=== PATIENT | male | born 1950 | race Caucasian/White ===

== ENCOUNTER → 2016-12-26 | Outpatient (REF) | payer MEDICARE, BC, OTHER | LOC: M SMT 17:27 | PROVIDERS: ATTEND Urology | DX: R97.20 Elevated prostate specific antigen [PSA] (principal); Z79.899 Other long term (current) drug therapy | CPT/HCPCS: 81001; 87086; G0463 ==

== ENCOUNTER → 2017-02-07 | Outpatient (CLI) | payer MEDICARE, BC, OTHER ==
--- NOTE | 2017-02-07 13:12 | REP ---
TRANSRECTAL PROSTATE ULTRASOUND WITH ULTRASOUND GUIDANCE FOR PROSTATE BIOPSY: Real-time sonographic of prostate performed utilizing transrectal probe. Size of the gland is 4.6 x 3.4 x 5.0 cm for a total volume of 40.8 mL. Echotexture is diffusely heterogeneous. Cystic area is seen on the left 5 mm in diameter. Seminal vesicles appear symmetrical. Ultrasound guidance was provided for Dr. Gaitan who performed ultrasound guided biopsy of the prostate. Signed by Noe Rahman MD 02/07/2017 05:49 P
== END ==
LOC: M SMT PRO 10:30
PROVIDERS: ATTEND Urology
DX: R97.20 Elevated prostate specific antigen [PSA] (principal)
CPT/HCPCS: 55700; 76872; 76942; G0416

== ENCOUNTER → 2017-02-20 | Outpatient (CLI) | payer MEDICARE, BC, OTHER ==
[~2017-02-20] MED LIST: ISOVUE-370 76% 100ML VIAL (Q9967) As Ordered ONE
--- NOTE | 2017-02-20 09:44 | REP ---
CT abdomen pelvis without and with IV contrast. After IV contrast imaging is performed during the late arterial / portal venous phase of enhancement and again later during the delayed equilibrium phase of enhancement. There are no comparisons. The S1 vertebral body is mildly hyperdense. This is nonspecific, however, given the clinical history of prostate carcinoma the possibility of a blastic lesion cannot be entirely discounted. There is a bridging osteophyte and cortical eburnation at the inferior aspect of the right sacroiliac articulation compatible with osteoarthritis. No other lytic, blastic or destructive skeletal changes are identified. The visualized lung samaniego are unremarkable. The hepatic parenchyma, gallbladder, pancreas and spleen are homogeneous and unremarkable on all phases of the study. The adrenals, kidneys and abdominal aorta are unremarkable. There is no retroperitoneal adenopathy. There is no mesenteric adenopathy. The bowel and mesentery are unremarkable except for descending colon and sigmoid colon diverticulosis without diverticulitis. Pelvis: There is no adenopathy or ascites. The bladder is unremarkable. The prostate is mildly enlarged and effaces the bladder base. Impression: Questionable blastic lesion in the S1 vertebral body. No other lytic, blastic or destructive skeletal changes. There is no retroperitoneal or mesenteric adenopathy. No ascites. The prostate is mildly enlarged and effaces the bladder base. There is diverticulosis without diverticulitis. Signed by Noe Cherry MD 02/20/2017 09:36 A
--- NOTE | 2017-02-20 13:25 | REP ---
Whole body radionuclide bone scan: Whole-body scanning is performed. Additionally oblique views of the ribs and pelvis are performed and lateral views of the calvarium are performed. There is a bilaterally symmetric pattern of uptake in the shoulders, compatible with degenerative uptake. There is degenerative uptake in the knees. There are no other foci of increased uptake. Impression: No evidence of skeletal metastatic disease. There is a degenerative pattern of uptake in the shoulders and knees. The study is performed with 22 mCi of technetium 99m labeled MDP. Signed by Noe Cherry MD 02/20/2017 01:17 P
== END ==
LOC: M RAD 07:47
PROVIDERS: ATTEND Urology
DX: C61 Malignant neoplasm of prostate (principal); N40.0 Benign prostatic hyperplasia without lower urinary tract symptoms; K57.30 Diverticulosis of large intestine without perforation or abscess without bleeding
CPT/HCPCS: 74178; 78306; A9503; Q9967

== ENCOUNTER → 2017-03-24 | Outpatient (CLI) | payer MEDICARE, BC, OTHER ==
[2017-03-24 18:08] LABS: MEAN CORPUSCULAR HEMOGLOBIN 30.5 pg (27.0-33.0); MEAN CORPUSCULAR HGB CONC 33.1 g/dl (32.0-36.5); MEAN CORPUSCULAR VOLUME 92.3 fl (80.0-96.0); PLATELET COUNT, AUTOMATED 290 10^3/uL (150-450); RED CELL DISTRIBUTION WIDTH 13.2 % (11.5-14.5); WHITE BLOOD COUNT 8.1 10^3/uL (4.0-10.0)
[2017-03-24 18:25] LABS: INR 0.9
[2017-03-24 18:33] LABS: ANION GAP 10 MEQ/L (8-16); BLOOD UREA NITROGEN 15 MG/DL (7-18); CALCIUM LEVEL 8.6 MG/DL (8.8-10.2); CARBON DIOXIDE LEVEL 26 MEQ/L (21-32); CHLORIDE LEVEL 104 MEQ/L (98-107); CREATININE FOR GFR 0.94 MG/DL (0.70-1.30); GLOMERULAR FILTRATION RATE > 60.0 (>49); GLUCOSE, FASTING 91 MG/DL (80-110); POTASSIUM SERUM 4.4 MEQ/L (3.5-5.1); SODIUM LEVEL 140 MEQ/L (136-145)
== END ==
LOC: M SMT 14:22
PROVIDERS: ATTEND Urology
DX: Z01.818 Encounter for other preprocedural examination (principal); C61 Malignant neoplasm of prostate; Z79.899 Other long term (current) drug therapy

== ENCOUNTER 2017-04-01 09:47 | Inpatient (IN) | payer MEDICARE, BC, OTHER ==
[~2017-04-01] VITALS: Ht 177.8 cm; Wt 77.1 kg
[2017-04-01] MEDS ORDERED: PROPOFOL 200 MG/20 ML VIAL As Ordered ONE ×2 (11:22→15:00)
[2017-04-01] MEDS ORDERED: ROCURONIUM BROMIDE 50 MG/5 ML VIAL As Ordered ONE ×3 (11:22→15:23)
[2017-04-01] MEDS ORDERED: LIDOCAINE 2% INJ 100 MG/5 ML SDV (FOR ANES.) As Ordered ONE (11:22)
[2017-04-01] MEDS ORDERED: dexameTHASONE 4 MG/ML 1ML VIAL (J1100) As Ordered ONE (11:24)
[2017-04-01] MEDS ORDERED: fentaNYL 250 MCG/5 ML INJECTION (J3010) As Ordered ONE (11:58)
[2017-04-01] MEDS ORDERED: ONDANSETRON 4MG/2ML VIAL (J2405) As Ordered ONE ×2 (11:58→15:49)
[2017-04-01] MEDS ORDERED: METOCLOPRAMIDE INJ 10MG/2ML VIAL (J2765) As Ordered ONE (11:58)
[2017-04-01] MEDS ORDERED: MIDAZOLAM INJ 2 MG/2 ML VIAL (J2250) As Ordered ONE (11:58)
[2017-04-01] MEDS ORDERED: HYDROmorphone HCL 2 MG/ML 1ML VIAL (J1170) As Ordered ONE (14:48)
[2017-04-01] MEDS ORDERED: SUGAMMADEX SODIUM 500 MG/5 ML VIAL (BRIDION) As Ordered ONE (15:38)
[2017-04-01] MEDS ORDERED: KETOROLAC 60 MG/2 ML VIAL (J1885) As Ordered ONE (15:49)
[2017-04-01] MEDS ORDERED: MORPHINE 4 MG/ML 1ML SYRINGE IV PRN (16:30)
[2017-04-01] MEDS ORDERED: LR 1,000 ML IV SCH (16:30)
[2017-04-01] MEDS ORDERED: ONDANSETRON 4MG/2ML VIAL (J2405) IV PRN ×2 (16:30)
[2017-04-01] MEDS ORDERED: fentaNYL 100 MCG/2 ML INJECTION (J3010) IV PRN (16:30)
[2017-04-01] MEDS ORDERED: HYDROmorphone HCL 1 MG/ML SYRINGE (J1170) IV PRN (16:30)
[2017-04-01] MEDS ORDERED: oxyCODONE 5MG TAB PO PRN (16:30)
[2017-04-01 16:50] LABS: MEAN CORPUSCULAR VOLUME 91.2 fl (80.0-96.0); PLATELET COUNT, AUTOMATED 287 10^3/uL (150-450); WHITE BLOOD COUNT 15.9 10^3/uL (4.0-10.0)
[2017-04-01 17:17] LABS: ANION GAP 9 MEQ/L (8-16); BLOOD UREA NITROGEN 14 MG/DL (7-18); CALCIUM LEVEL 8.3 MG/DL (8.8-10.2); CARBON DIOXIDE LEVEL 26 MEQ/L (21-32); CHLORIDE LEVEL 106 MEQ/L (98-107); CREATININE FOR GFR 1.19 MG/DL (0.70-1.30); GLOMERULAR FILTRATION RATE > 60.0 (>49); GLUCOSE, FASTING 146 MG/DL (80-110); POTASSIUM SERUM 4.7 MEQ/L (3.5-5.1); SODIUM LEVEL 141 MEQ/L (136-145)
[2017-04-01 18:00] VITALS: BP 135/82
[2017-04-01] MEDS ORDERED: PANTOPRAZOLE 40MG INJ (PROTONIX) (C9113) IV SCH (18:00)
[2017-04-01 18:30] VITALS: BP 146/78
[2017-04-01] MEDS ORDERED: LevoFLOXacin IV 500 MG in APPROPRIATE DILUENT 1 EA IV SCH (19:00)
[2017-04-01 19:30] VITALS: BP 133/80
[2017-04-01] MEDS: KCL 20MEQ IN D5/0.45NS 1000ML 1,000 ML IV SCH (19:39)
[2017-04-01 20:30] VITALS: BP 132/76
[2017-04-01] MEDS: ACETAMINOPHEN 650MG ER TAB (TYLENOL ARTHRITIS) PO SCH (22:45)
[2017-04-02] MEDS: KETOROLAC 30 MG/ML VIAL (J1885) IV SCH ×2 (00:14→08:42)
[2017-04-02 02:00] VITALS: BP 113/67
[2017-04-02] MEDS: KCL 20MEQ IN D5/0.45NS 1000ML 1,000 ML IV SCH ×2 (03:47→08:30)
[2017-04-02] MEDS: ACETAMINOPHEN 650MG ER TAB (TYLENOL ARTHRITIS) PO SCH ×2 (05:54→13:47)
[2017-04-02 06:00] VITALS: BP 125/66
[2017-04-02 06:58] LABS: MEAN CORPUSCULAR HEMOGLOBIN 30.4 pg (27.0-33.0); MEAN CORPUSCULAR HGB CONC 33.5 g/dl (32.0-36.5); MEAN CORPUSCULAR VOLUME 90.8 fl (80.0-96.0); PLATELET COUNT, AUTOMATED 273 10^3/uL (150-450); RED CELL DISTRIBUTION WIDTH 13.1 % (11.5-14.5); WHITE BLOOD COUNT 14.5 10^3/uL (4.0-10.0)
[2017-04-02 07:03] LABS: ANION GAP 9 MEQ/L (8-16); BLOOD UREA NITROGEN 12 MG/DL (7-18); CARBON DIOXIDE LEVEL 24 MEQ/L (21-32); CHLORIDE LEVEL 105 MEQ/L (98-107); CREATININE FOR GFR 0.99 MG/DL (0.70-1.30); GLOMERULAR FILTRATION RATE > 60.0 (>49); GLUCOSE, FASTING 142 MG/DL (80-110); POTASSIUM SERUM 4.1 MEQ/L (3.5-5.1); SODIUM LEVEL 138 MEQ/L (136-145)
[2017-04-02 10:00] VITALS: BP 121/72
[2017-04-02 14:00] VITALS: BP 117/76
[2017-04-02] MEDS ORDERED: CIPR500T3 PO (14:41)
[2017-04-02] MEDS ORDERED: TYLE650T35 PO (14:41)
--- NOTE | 2017-04-03 10:32 | RO ---
DATE OF PROCEDURE: 04/01/2017 PREOPERATIVE DIAGNOSIS: Prostate cancer. POSTOPERATIVE DIAGNOSIS: Prostate cancer. PROCEDURE: Robotic assisted radical prostatectomy, plus bilateral pelvic lymph node dissection. SURGEON: Denis Gaitan MD HOT BREAD BAKER: Ramandeep Vee NP ANESTHESIA: General. COMPLICATIONS: None. ESTIMATED BLOOD LOSS (EBL): 25 mL. HISTORY OF PRESENT ILLNESS: 66-year-old male patient with a clinical stage [id number] prostate cancer, Kristy 7. The patient has had a history of bilateral inguinal hernias with meshes. He has consented for robotic assisted radical prostatectomy, plus bilateral pelvic lymph node dissection. PROCEDURE DESCRIPTION: In a patient under general anesthesia in supine modified low lithotomy position, after prepping and draping the area of concern, which included the entire genitalia and abdomen, we inserted a 16-Mohawk Park catheter, inflate the balloon to 10 mL and placed it to gravity. We then preceded to do an incision infraumbilically, longitudinally in the midline for about 2 cm in length. Through this incision, we opened the rectus space and placed a balloon Spacemaker to dissect the rectus space. We then placed a 12 mm balloon trocar and inflated the to 40 mL and through this trocar we insufflated extraperitoneal space with CO2 at a maximum pressure of 50 at high flow. We then preceded to put a handheld robotic camera at 0 degrees through this trocar and placed the other trocars in a fan shaped manner. An 8 mm metallic trocar was placed in the midclavicular line in a fan shaped manner on the right side 8 cm away from midline and 8 cm away from this one another 8 mm metallic trocar in a fan shaped manner was placed with a third arm. On the left side, we placed a 12 mm hospital clinic assistant port trocar, VersaStep for the hospital clinic assistant port 6 cm away from the midline and 8 cm away from this one, an 8 mm metallic trocar on the left side in a fan shaped manner for the left arm. We then proceeded to place the patient in steep Trendelenburg position and docked the robot. On the left arm, we used Monopolar scissors. On right arm, we used Bipolar PK and ProGrasp. We preceded to actually dissect the periprostatic fat and then identified the endopelvic fascia. We cut the endopelvic fascia with monopolar scissors from base to apex. We then preceded to actively secure the dorsal vein complex with a CT1 needle and #0 Vicryl times two. We then proceeded to cut with the monopolar scissors the anterior bladder neck and then found Park catheter, deflated the balloon and retract the Park catheter with a third arm anteriorly to expose the posterior bladder neck. We cut the posterior bladder neck and then the posterior detrusor muscle. We then identified the vas deferens, dissected the vas deferens and with the third arm grabbed the vas deferens and pulled it anteriorly to retract and dissect the seminal vesicles on the left and the right. Once the seminal vesicles on the left and right were dissected, we grabbed the seminal vesicles and the vas deferens with the third arm and pulled them anteriorly to actually retract and expose the posterior Denonvilliers fascia. We incised the posterior Denonvilliers fascia and dissected the rectum away from the prostate from base to apex. We then proceeded to control the prostatic pedicles with Hem-o-michael times two on the left side, times two on the right side. We then dissected in an intrafascial approach the neurovascular bundles from base to apex. Once the prostate was attached only to the dorsal vein complex, we cut the doral vein complex with monopolar scissors and cut the urethra. We then placed the prostate into a 10 mm Endo Catch bag. We then preceded to actually do our posterior reconstruction with a #3-0 V-Loc in a running fashion. We then preceded to do urethrovesical anastomosis with a Quill stitch, #2-0 barbed suture absorbable double needle starting at 6-o'clock in the bladder neck outside in and inside out in the urethra running it across 360 degrees and passing a Park catheter, 20-Mohawk, inflating the balloon to 20 mL. We tested anastomosis. It was watertight. I then preceded to do our pelvic lymph node dissection on the left, on the right. The limits of dissection were hypogastric arteries superiorly, inferiorly, the lacunar ligament posteriorly and the pelvic sidewall, medially the bladder and anteriorly the iliac artery. We dissected the hypogastric lymph nodes and the obturator lymph nodes and the external iliac lymph nodes. We secured lymphostasis with Hem-o-michael and bipolar PK on the left and the right. Each specimen was sent as permanent pathology analysis in separate Endo Catch's of 10 mm in diameter. We then preceded to actually took all the instruments out and placed a 15 round drain to bulb suction. We undocked the robot, took the optic out and took all the trocars out afterward. We took all the specimens, left pelvic lymph dissection, right pelvic lymph dissection, prostate, and seminal vesicles in each Endo Catch bag and sent it for permanent pathology analysis. Total EBL was 25 mL. There were no complications during the surgery. We then started closing the incisions by starting the midline incision with a UR-6 and #0 Vicryl running fashion and every single skin incision with #4-0 Monocryl subcuticular stitches. We secured the drain to the skin with #3-0 nylon. We covered every single incision with Mastisol, Steri-Strips, Telfa, and Tegaderm. There were no complications during surgery. PLAN: The patient will pass to recovery and then to the floor. Once he is tolerating a regular diet he will discharged home with a Park catheter, followup at [facility] in about 10 days for voiding trial.
--- NOTE | 2017-04-04 18:14 | DSES ---
DATE OF ADMISSION: 04/01/2017 DATE OF DISCHARGE: 04/02/2017 ADMISSION DIAGNOSIS: Prostate cancer. DISCHARGE DIAGNOSIS: Prostate cancer. SURGERY PERFORMED: Robotic-assisted radical prostatectomy plus bilateral pelvic lymph node dissections. ADMITTING SURGEON: Dr. Denis Gaitan. DISCHARGE SURGEON: Dr. Denis Gaitan. COMPLICATIONS: None. HISTORY OF PRESENT ILLNESS: This is a 66-year-old male patient who has a history of prostate cancer clinical stage CT1c Nx Mx, Kristy seven 4+3. The patient has consented for a robotic assisted radical prostatectomy plus bilateral pelvic lymph node dissection. For this reason, the surgery was performed on 04/01/2017, and after this procedure, the patient was admitted to the hospital as inpatient status. HOSPITALIZATION COURSE: The patient did very well. By postoperative day one, he was tolerating a regular diet, ambulating very well. Pain was controlled with oral pain medications. Park catheter was draining clear urine. The Rob-Pitt (RALEIGH) output was draining 35 mL on the last shift. He requested to go home, and we agreed upon this. We will discontinue the RALEIGH drain today. He will go home with a Park catheter to gravity. He will have antibiotics ciprofloxacin 500 mg one tablet by mouth twice a day for 10 days, and Tylenol 650 mg one tablet by mouth every eight hours as needed for pain. He can have a regular diet. No heavy weightlifting above 20 pounds. He can shower in three days. He will followup in -10 at [facility] for a voiding trial. There were no complications of the surgery or hospitalization. Pathology report has not come back yet.
== END 2017-04-02 15:42 | disposition home or self-care (01) | DRG 708 ==
LOC: M OR 09:47 → M MSPAV 18:31
PROVIDERS: ADMIT Urology; ATTEND Urology
PROC: 07BC4ZX Excision of Pelvis Lymphatic, Percutaneous Endoscopic Approach, Diagnostic (ICD-10-PCS; 2017-04-01)
PROC: 0VB34ZZ Excision of Bilateral Seminal Vesicles, Percutaneous Endoscopic Approach (ICD-10-PCS; 2017-04-01)
PROC: 8E0W4CZ Robotic Assisted Procedure of Trunk Region, Percutaneous Endoscopic Approach (ICD-10-PCS; 2017-04-01)
PROC: 0VT04ZZ Resection of Prostate, Percutaneous Endoscopic Approach (ICD-10-PCS; principal; 2017-04-01 11:45)
DX: C61 Malignant neoplasm of prostate (principal)

== ENCOUNTER → 2017-04-23 | Outpatient (REF) | payer MEDICARE, BC, OTHER | LOC: M LAB REF 15:26 | DX: L08.9 Local infection of the skin and subcutaneous tissue, unspecified (principal) | CPT/HCPCS: 87186 ==

== ENCOUNTER → 2017-04-23 | Outpatient (REF) | payer MEDICARE, BC, OTHER | LOC: M SMT 17:34 | DX: C61 Malignant neoplasm of prostate (principal); Z79.899 Other long term (current) drug therapy | CPT/HCPCS: 87086 ==

== ENCOUNTER → 2017-05-12 | Outpatient (CLI) | payer MEDICARE, BC, OTHER ==
[2017-05-12 20:18] LABS: PROSTATIC SPECIFIC AG MONITOR 0.03 NG/ML (< 4.0)
== END ==
LOC: M SMT 12:54
DX: C61 Malignant neoplasm of prostate (principal)
CPT/HCPCS: 84153

== ENCOUNTER → 2017-07-29 | Outpatient (REF) | payer MEDICARE, OTHER ==
[2017-07-29 13:11] LABS: APPEARANCE, URINE HAZY (CLEAR); BACTERIA, URINE AUTO 1+ (NEGATIVE); BILIRUBIN, URINE AUTO NEGATIVE (NEGATIVE); BLOOD, URINE BLOOD 3+ (NEGATIVE); COLOR, URINE YELLOW (YELLOW); GLUCOSE, URINE (UA) AUTO NEGATIVE (NEGATIVE); KETONE, URINE AUTO NEGATIVE (NEGATIVE); LEUKOCYTE ESTERASE, URINE AUTO 3+ (NEGATIVE); MUCUS, URINE SMALL (NEGATIVE); NITRITE, URINE AUTO NEGATIVE (NEGATIVE); PROTEIN, URINE AUTO 1+ mg/dL (NEGATIVE); RBC, URINE AUTO TNTC /HPF (0-3); SPECIFIC GRAVITY URINE AUTO 1.009 (1.002-1.035); SQUAMOUS EPITHELIAL CELL UR AU 0 /HPF (0-6); UROBILINOGEN, URINE AUTO 0.2 mg/dL (0.0-2.0); WBC, URINE AUTO 76 /HPF (0-3)
== END ==
LOC: M SMT 12:52
DX: R35.0 Frequency of micturition (principal)
CPT/HCPCS: 81001

== ENCOUNTER → 2017-08-07 | Outpatient (CLI) | payer MEDICARE, OTHER ==
[2017-08-07 18:33] LABS: PROSTATIC SPECIFIC AG MONITOR 0.03 NG/ML (< 4.0)
== END ==
LOC: M SMT 11:16
DX: Z85.46 Personal history of malignant neoplasm of prostate (principal)
CPT/HCPCS: 84153

== ENCOUNTER → 2017-08-12 | Outpatient (REF) | payer MEDICARE, OTHER ==
[2017-08-12 19:02] LABS: APPEARANCE, URINE CLEAR (CLEAR); BACTERIA, URINE AUTO NEGATIVE (NEGATIVE); BILIRUBIN, URINE AUTO NEGATIVE (NEGATIVE); BLOOD, URINE BLOOD NEGATIVE (NEGATIVE); COLOR, URINE YELLOW (YELLOW); GLUCOSE, URINE (UA) AUTO NEGATIVE (NEGATIVE); KETONE, URINE AUTO NEGATIVE (NEGATIVE); LEUKOCYTE ESTERASE, URINE AUTO NEGATIVE (NEGATIVE); MUCUS, URINE SMALL (NEGATIVE); NITRITE, URINE AUTO NEGATIVE (NEGATIVE); PROTEIN, URINE AUTO NEGATIVE (NEGATIVE); RBC, URINE AUTO 2 /HPF (0-3); SPECIFIC GRAVITY URINE AUTO 1.025 (1.002-1.035); SQUAMOUS EPITHELIAL CELL UR AU 0 /HPF (0-6); UROBILINOGEN, URINE AUTO 0.2 mg/dL (0.0-2.0); WBC, URINE AUTO 3 /HPF (0-3)
== END ==
LOC: M SMT 17:25
DX: Z85.46 Personal history of malignant neoplasm of prostate (principal); Z79.82 Long term (current) use of aspirin; Z79.899 Other long term (current) drug therapy
CPT/HCPCS: 81001

== ENCOUNTER → 2017-09-25 | Outpatient (REF) | payer MEDICARE, OTHER | LOC: M LAB REF 15:48 | DX: L08.9 Local infection of the skin and subcutaneous tissue, unspecified (principal) | CPT/HCPCS: 87186 ==

== ENCOUNTER → 2017-11-12 | Outpatient (CLI) | payer MEDICARE, OTHER ==
[2017-11-12 18:09] LABS: PROSTATIC SPECIFIC AG MONITOR 0.09 NG/ML (< 4.0)
== END ==
LOC: M SMT 13:49
DX: Z85.46 Personal history of malignant neoplasm of prostate (principal)
CPT/HCPCS: 84153

== ENCOUNTER → 2018-03-02 | Outpatient (CLI) | payer MEDICARE, BC, OTHER ==
[2018-03-02 18:54] LABS: PROSTATIC SPECIFIC AG MONITOR 0.2 NG/ML (< 4.0)
== END ==
LOC: M SMT 14:33
DX: Z85.46 Personal history of malignant neoplasm of prostate (principal)
CPT/HCPCS: 84153

== ENCOUNTER → 2018-03-19 | Outpatient (CLI) | payer MEDICARE, OTHER | LOC: M ONCR 12:51 | DX: C61 Malignant neoplasm of prostate (principal) | CPT/HCPCS: G0463 ==

== ENCOUNTER → 2018-04-13 | Outpatient (RCR) | payer MEDICARE, OTHER ==
[2018-03-25 11:09] LABS: HEMATOCRIT 42.4 % (42.0-52.0); HEMOGLOBIN 14.1 g/dl (13.5-17.5); MEAN CORPUSCULAR HEMOGLOBIN 30.5 pg (27.0-33.0); MEAN CORPUSCULAR HGB CONC 33.3 g/dl (32.0-36.5); MEAN CORPUSCULAR VOLUME 91.6 fl (80.0-96.0); PLATELET COUNT, AUTOMATED 262 10^3/uL (150-450); RED BLOOD COUNT 4.63 10^6/uL (4.30-6.10); WHITE BLOOD COUNT 7.3 10^3/uL (4.0-10.0)
--- NOTE | 2018-03-26 10:51 | RADONC ---
RADIATION ONCOLOGY SIMULATION NOTE DATE: 03/25/2018 CHART #: [id number] Mr. Rosario was taken to the CT scan for CT simulation of his prostate bed field. CT was accomplished without difficulty or discomfort. Radiation treatment planning is underway and radiation treatments will begin subsequently. An immobilization device was created without difficulty or discomfort. It will be used throughout the course of treatment. I was physically present throughout the course of CT simulation.
[~2018-04-13] MED LIST changes: +CIPR500T3 PO; -ISOVUE-370 76% 100ML VIAL (Q9967) As Ordered ONE; +TYLE650T35 PO
--- NOTE | 2018-04-15 14:18 | RADONC ---
RADIATION ONCOLOGY PROGRESS NOTE DATE: 04/13/2018 CHART NUMBER: [id number] Mr. Rosario is presently at a dose of 720 cGy to his prostate bed and is tolerating treatments quite well at this point with no complaints related to his radiation therapy. He is having no significant urinary or bowel difficulties and no bone pain. The patient's review of systems is basically noncontributory. He denies nausea, vomiting, fevers, chills, night sweats, diplopia, headaches, anxiety or depression, anorexia, weight loss, visual disturbances, chest pain, urinary or bowel difficulties, bone pain, or neurological problems. PHYSICAL EXAMINATION: The patient's skin is in good condition with no evidence of moist or dry desquamation. The remainder of his physical exam remains unchanged. Mr. Rosario is tolerating treatments quite well, and radiation will continue as scheduled. edited: 04/15/2018 1424 tkf MTDD
== END ==
LOC: M ONCR 03-25 10:48
PROVIDERS: ATTEND Radiology Radiation Oncology
DX: C61 Malignant neoplasm of prostate (principal)
CPT/HCPCS: 36415; 77290; 77295; 77300; 77334; 77336; 77387; 77412; 85027; G0103

== ENCOUNTER → 2018-05-14 | Outpatient (RCR) | payer MEDICARE, OTHER ==
--- NOTE | 2018-04-27 15:18 | RADONC ---
RADIATION ONCOLOGY PROGRESS NOTE: DATE: 04/27/2018 CHART NUMBER: [id number] Mr. Rosario is presently at a dose of 2160 cGy to his prostate bed and is tolerating treatments quite well at this point with no complaints related to his radiation therapy. He is having no urinary or bowel difficulties and no bone pain. REVIEW OF SYSTEMS: He denies nausea, vomiting, fevers, chills, night sweats, diplopia, headaches, anxiety or depression, anorexia, weight loss, visual disturbances, chest pain, urinary or bowel difficulties, bone pain, or neurological problems. He denies and standard review of systems. PHYSICAL EXAMINATION: The patient's skin is in good condition with no evidence of moist or dry desquamation. The remainder of his physical exam remains unchanged. Mr. Rosario is tolerating treatments quite well and radiation will continue as scheduled.
--- NOTE | 2018-05-05 10:54 | RADONC ---
RADIATION ONCOLOGY PROGRESS NOTE DATE: 05/04/2018 CHART NUMBER: [id number] PROGRESS NOTE: Mr. Rosario is thus far at a dose of 2880 cGy to his prostate bed and has been tolerating his treatments quite well with no difficulties. He was last treated on 05/01/2018. The patient called today saying he could not come in secondary to the weather. REVIEW OF SYSTEMS: The patient's review of systems has Friday had been noncontributory. Denies nausea, vomiting, fevers, chills, night sweats, diplopia, headaches, anxiety or depression, anorexia, weight loss, visual disturbances, chest pain, urinary or bowel difficulties, bone pain, or neurological problems. PHYSICAL EXAMINATION: As of last week, the patient's skin was in good condition with no evidence of moist or dry desquamation. The remainder of his physical exam remains unchanged. Mr. Rosario is scheduled to resume radiation tomorrow weather permitting. In the meantime, he had been tolerating his treatments quite well.
--- NOTE | 2018-05-11 11:29 | RADONC ---
RADIATION ONCOLOGY PROGRESS NOTE DATE: 05/11/2018 CHART #: [id number] Mr. Rosario is presently at a dose of 3780 cGy to his prostate bed and is tolerating treatments quite well at this point with no significant difficulties related to his radiation therapy. He is having no urinary or bowel difficulties and no bone pain. REVIEW OF SYSTEMS: The patient's review of systems is noncontributory except for some strange knee discomfort. Denies nausea, vomiting, fevers, chills, night sweats, diplopia, headaches, anxiety or depression, anorexia, weight loss, visual disturbances, chest pain, urinary or bowel difficulties, bone pain, or neurological problems. PHYSICAL EXAMINATION: The patient's skin is in good condition with no evidence of moist or dry desquamation. The remainder of his physical exam remains unchanged. Mr. Rosario is tolerating treatments quite well and radiation will continue as scheduled.
== END ==
LOC: M ONCR 04-15 07:29
PROVIDERS: ATTEND Radiology Radiation Oncology
DX: C61 Malignant neoplasm of prostate (principal)

== ENCOUNTER 2018-06-08 08:06 | Outpatient (RCR) | payer MEDICARE, OTHER ==
--- NOTE | 2018-05-18 16:27 | RADONC ---
RADIATION ONCOLOGY PROGRESS NOTE DATE: 05/18/2018 CHART NUMBER: [id number] PROGRESS NOTE: Mr. Rosario is presently at a dose of 4320 cGy to his prostate bed and is tolerating treatments quite well at this point with no complaints related to his radiation therapy. He is having no urinary or bowel difficulties. No bone pain. REVIEW OF SYSTEMS: The patient's review of systems is noncontributory. Denies nausea, vomiting, fevers, chills, night sweats, diplopia, headaches, anxiety or depression, anorexia, weight loss, visual disturbances, chest pain, urinary or bowel difficulties, bone pain, or neurological problems. PHYSICAL EXAMINATION: The patient's skin is in good condition with no evidence of moist or dry desquamation. The remainder of his physical exam remains unchanged. Mr. Rosario is tolerating treatments quite well and radiation will continue as scheduled.
--- NOTE | 2018-05-26 19:53 | RADONC ---
PROGRESS NOTE: DATE: 05/25/2018 Mr. Rosario, with adenocarcinoma of the prostate, is receiving local regional radiotherapy to the prostate bed and appears to be tolerating his therapy as anticipated. He denies any nausea, vomiting, diarrhea, significant dysuria, hematuria or blood per rectum. He denies bone pain. REVIEW OF SYSTEMS: Review of systems is essentially negative with related to the genitourinary area. The other major systems also are noncontributory as he denies any chest pain, neurologic issues, anxiety or depression. PHYSICAL EXAMINATION: The patient's skin shows no evidence of erythema and certainly no focal desquamation. IMPRESSION: Tolerating therapy well. PLAN: Treatments to continue. DD: Varun Barlow MD 05/25/2018 08:47 A DT: mo 05/26/2018 01:33 P CC: KATHY
--- NOTE | 2018-06-02 19:02 | RADONC ---
RADIATION ONCOLOGY PROGRESS NOTE DATE OF SERVICE: 06/01/2018 CHART NUMBER: [id number]. PROGRESS NOTE Mr. Rosario with a diagnosis of adenocarcinoma of the prostate is currently receiving local regional radiotherapy postoperatively, and he is at a dose of 5940 cGy of an anticipated 6660 cGy. He only has four more treatments to complete his entire course of postoperative radiotherapy. He is complaining of frequent stools but no diarrhea and a feeling of urgency with regard to urination. He claims that his symptoms are "intolerable" at this time, and he is wondering if he can forego the last four treatments. I believe that he is not experiencing any blood in the urine or any other issues other than minor incontinence, both of urination and what appears to be most consistent with an urgency with regard to his stools. Nonetheless, he denies any nausea, vomiting, significant dysuria, hematuria, or blood per rectum. The remainder of the review of systems is essentially noncontributory, as he denies any coughing, shortness of breath, headaches, nausea, vomiting, focal neurologic deficits, seizures, depression, or anxiety. EXAMINATION FINDINGS: The patient is a well-nourished, well-developed male who looks appropriate for his age. He has radiation changes noted in the perianal area, but otherwise the physical examination is unchanged. IMPRESSION: The patient now has some symptoms secondary to his radiotherapy consisting of frequency and urgency of both bowel and bladder. PLAN: He would like to have several days off to improve his symptoms, which I think is reasonable enough. I believe that he would most likely is insinuating that he would like to discontinue his treatments at this time and not continue with the [address] Dwyer had prescribed initially. I strongly discouraged him following that course. I believe he needs the full dose of postoperative radiotherapy. I believe after several days, his symptoms will resolve somewhat, and he can continue his normal course of radiotherapy to completion.
--- NOTE | 2018-06-09 08:55 | RADONC ---
RADIATION ONCOLOGY TREATMENT SUMMARY DATE: 06/08/2018 CHART #: [id number] DIAGNOSIS: Prostate cancer. STAGE: III B, [id number], PSA 39, Kristy score 7 (4-3) grade group III. ECOG PERFORMANCE STATUS: 0. TREATMENT SUMMARY: Mr. Rosario is a very pleasant 67-year-old white male with the diagnosis of what appears to be a stage III B, [id number], moderate to poorly differentiated Kristy score 7 (4-3) adenocarcinoma of the prostate with an initial PSA level of 39 who presented to us for consideration of postoperative radiation therapy in an attempt to increase the likelihood of achieving local control and cure. We treated the patient to his prostate bed for a dose of 6660 cGy delivered in 37 fractions of 180 cGy each over 61 elapsed days from 04/08/2018 through 06/08/2018. The patient's prostate bed was treated on the linear accelerator utilizing a 15 MV photon beam via a 3-D conformal technique with anterior, posterior, left and right lateral samaniego. We initially treated a larger area for a dose of 4500 cGy and subsequently coned down to deliver the remaining 2160 cGy in order to maintain the small bowel and other tissues within their tolerance limits. Mr. Rosario tolerated his treatments quite well with no significant difficulties related to his radiation therapy. The patient is scheduled see me again in 1 month for further followup. He will also continue to be followed by his other physicians as well. He was able to complete therapy as prescribed without difficulty. cc: MD Keegan Roth MD
== END 2018-06-11 ==
LOC: M ONCR 08:06
PROVIDERS: ATTEND Radiology Radiation Oncology
DX: C61 Malignant neoplasm of prostate (principal)

== ENCOUNTER → 2018-07-17 | Outpatient (CLI) | payer MEDICARE, BC, OTHER | LOC: M SMT 13:32 | PROVIDERS: ATTEND Radiology Radiation Oncology | DX: C61 Malignant neoplasm of prostate (principal) ==

== ENCOUNTER → 2018-07-22 | Outpatient (CLI) | payer MEDICARE, BC, OTHER ==
--- NOTE | 2018-07-22 11:07 | RADONC ---
RADIATION ONCOLOGY FOLLOW-UP NOTE DATE: 07/22/2018 CHART NUMBER: [id number] DIAGNOSIS: Prostate cancer. STAGE: IIIB, [id number], PSA 39, Kristy score 7 (4-3), grade group 3. ECOG PERFORMANCE STATUS: 0 FOLLOW-UP NOTE: Mr. Rosario is a very pleasant 67-year-old white male with the diagnosis what appears to be a stage IIIB, [id number], moderate to poorly differentiated Kristy score 7 (4-3) adenocarcinoma of prostate with initial PSA level of 39 who is presenting to us today for routine followup visit 1 month post completion of external beam radiation therapy. The patient presents today reporting that he is doing quite well with no complaints at this time related to his radiation therapy or disease. He is having no urinary or bowel difficulties and no bone pain. REVIEW OF SYSTEMS: The patient's review of systems is noncontributory. He denies nausea, vomiting, fevers, chills, night sweats, diplopia, headaches, anxiety or depression, anorexia, weight loss, visual disturbances, chest pain, urinary or bowel difficulties, bone pain or neurological problems. PHYSICAL EXAMINATION: The patient is a well-developed, well-nourished male in no acute distress. HEENT exam is normocephalic, atraumatic. Extraocular movements are intact. There is no palpable cervical, supraclavicular, infraclavicular, axillary, or inguinal lymphadenopathy present. Lungs are clear to auscultation and percussion. Heart has a regular rate and rhythm. Abdomen is benign with no hepatosplenomegaly, masses, or tenderness. Rectal examination reveals a normal anal sphincter tone. His prostate bed is smooth with no evidence of nodularity. Skeletal examination reveals no tenderness to pressure or percussion of the bony skeleton. Extremities reveal no clubbing, cyanosis, or edema. Neurologic exam is grossly intact as is the remainder of the physical examination. ASSESSMENT: The patient is clinically RACHEL at this time and will be seen by us again in 6 months for further followup. He will also continue be followed by his other physicians as well. cc: MD Keegan Roth MD
== END ==
LOC: M ONCR 09:06
PROVIDERS: ATTEND Radiology Radiation Oncology
DX: Z08 Encounter for follow-up examination after completed treatment for malignant neoplasm (principal); Z85.46 Personal history of malignant neoplasm of prostate; Z92.3 Personal history of irradiation

== ENCOUNTER → 2019-01-20 | Outpatient (CLI) | payer MEDICARE, BC, OTHER | LOC: M SMT 11:21 | PROVIDERS: ATTEND Radiology Radiation Oncology | DX: C61 Malignant neoplasm of prostate (principal) ==

== ENCOUNTER → 2019-01-27 | Outpatient (CLI) | payer MEDICARE, BC, OTHER ==
--- NOTE | 2019-01-28 10:39 | RADONC ---
RADIATION ONCOLOGY FOLLOWUP NOTE DATE: 01/27/2019 CHART NUMBER: [id number] DIAGNOSIS: Prostate cancer. STAGE: III B, T3b, N0, M0, PSA 39, Kristy score 7 (4-3), grade group 3. ECOG PERFORMANCE STATUS: 0 FOLLOWUP NOTE: Mr. Rosario is a 67-year-old white male with the diagnosis what appears to be a stage III B, T3b, N0, M0, moderate to poorly differentiated Anna score 7 (4-3) adenocarcinoma prostate with initial PSA level of 39, who is presenting to us today for routine followup visit 8 months post completion of external beam radiation therapy. REVIEW OF SYSTEMS: The patient presents today reporting that he continues to have some urinary incontinence, which he has had since surgery long before we irradiated him. This is unchanged. The remainder of his review of systems is noncontributory. Denies nausea, vomiting, fevers, chills, night sweats, diplopia, headaches, anxiety or depression, anorexia, weight loss, visual disturbances, chest pain, urinary or bowel difficulties, bone pain, or neurological problems. PHYSICAL EXAMINATION: The patient is a well-developed, well-nourished male in no acute distress. HEENT exam is normocephalic, atraumatic. Extraocular movements are intact. There is no palpable cervical, supraclavicular, infraclavicular, axillary, or inguinal lymphadenopathy present. Lungs are clear to auscultation and percussion. Heart has a regular rate and rhythm. Abdomen is benign with no hepatosplenomegaly, masses, or tenderness. Skeletal examination reveals no tenderness to pressure or percussion of the bony skeleton. Extremities reveal no clubbing, cyanosis, or edema. Neurologic exam is grossly intact, as is the remainder of the physical examination. ASSESSMENT: The patient is clinically RACHEL at this time. He is being followed by his urologist and will be contacting Roland Lizarraga MD to set up another followup appointment. We did offer to set up an appointment here in 6 months' time but the patient requested to followup with his urology group. In light of this, I have not set him up with anything here. He does have my cell phone number and our office number and I let him know we are available to him should he have any questions in the meantime. I also let him know to contact us if he has any difficulty setting up his subsequent followup appointment with Dr. Lizarraga. cc: MD Keegan Roth MD
== END ==
LOC: M ONCR 10:50
PROVIDERS: ATTEND Radiology Radiation Oncology
DX: C61 Malignant neoplasm of prostate (principal)

== ENCOUNTER → 2023-08-11 | Outpatient (CLI) | payer MEDICARE, BC, OTHER ==
[~2023-08-11] MED LIST changes: +ACET650T61 PO; -TYLE650T35 PO
== END ==
LOC: M WUC 15:35
PROVIDERS: ATTEND Student in an Organized Health Care Education/Training Program
DX: M19.032 Primary osteoarthritis, left wrist (principal)